=== PATIENT | female | born 1965 | race Caucasian/White ===

== ENCOUNTER → 2017-08-25 12:12 | Outpatient (CLI) | payer OTHER, MEDICAID, SELFPAY ==
[2017-08-25 12:49] LABS: Add Manual Diff / Slide Review NO; Basophils Percent Auto 1.4 % (0-2); Hematocrit 35.6 % (36-46); Hemoglobin 12.1 g/dL (12.0-16.0); Lymphocytes Percent Auto 33.2 % (25-40); Mean Corpuscular Hemoglobin 33.1 PG (26-34); Mean Corpuscular Volume 97.5 fL (80-100); Monocytes Percent Auto 7.2 % (3-14); Neutrophils Absolute Auto 2000 /uL (3000-5900); Neutrophils Percent Auto 55.2 % (50-75); Platelet Count 245 X10^3/uL (150-400); Red Blood Cell Count 3.65 X10^6/uL (4.0-5.2); Red Cell Distribution Width 12.7 % (11.6-14.8); White Blood Cell Count 3.6 X10^3/uL (4.5-11.0)
[2017-08-25 13:40] LABS: HEMOLYSIS < 15 (0-50); Iron 105 ug/dL (37-170)
[2017-08-25 13:51] LABS: Percent Iron Saturation 31 % (15-50); Total Iron Binding Capacity 340 ug/dL (265-497); Transferrin 270 mg/dL (206-381)
== END ==
PROVIDERS: Family Provider Nurse Practitioner Family; PCP Nurse Practitioner Family; Visit Provider Nurse Practitioner Gerontology
DX: D50.9 Iron deficiency anemia, unspecified (principal)
CPT/HCPCS: 36415; 83540; 83550; 85025

== ENCOUNTER → 2017-11-17 09:58 | Outpatient (CLI) | payer OTHER, MEDICAID, SELFPAY ==
[2017-11-17 10:11] LABS: Add Manual Diff / Slide Review NO; Basophils Percent Auto 2.4 % (0-2); Eosinophils Percent Auto 4.8 % (2-4); Hematocrit 35.6 % (36-46); Hemoglobin 12.3 g/dL (12.0-16.0); Lymphocytes Percent Auto 24.4 % (25-40); Mean Corpuscular HGB Conc 34.5 % (30-36); Mean Corpuscular Hemoglobin 33.1 PG (26-34); Monocytes Percent Auto 8.5 % (3-14); Neutrophils Absolute Auto 2600 /uL (3000-5900); Neutrophils Percent Auto 59.9 % (50-75); Platelet Count 273 X10^3/uL (150-400); Red Cell Distribution Width 13.1 % (11.6-14.8); White Blood Cell Count 4.3 X10^3/uL (4.5-11.0)
[2017-11-17 10:33] LABS: HEMOLYSIS < 15 (0-50); Iron 72 ug/dL (37-170)
[2017-11-17 10:43] LABS: Percent Iron Saturation 22 % (15-50); Total Iron Binding Capacity 328 ug/dL (265-497); Transferrin 267 mg/dL (206-381)
== END ==
PROVIDERS: Family Provider Nurse Practitioner Family; PCP Nurse Practitioner Family; Visit Provider Nurse Practitioner Gerontology
DX: D50.8 Other iron deficiency anemias (principal)
CPT/HCPCS: 36415; 83540; 83550; 85025

== ENCOUNTER 2017-11-24 11:30 | Oncology outpatient (ONC) | payer OTHER, MEDICAID, SELFPAY ==
--- NOTE | 2017-09-01 12:29 | ONC.APRN.PN ---
Assessment and Plan (1) Iron deficiency anemia due to dietary causes Current visit: Yes Status: Acute 09/01/17 12:36 The patient is a 51 year old Female who is being seen in the clinic 09/01/2017. 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 Etiology of malabsorption is related to damage to duodenal lining after ingesting a chemical in suicide attempt. Most recently she received iron sucrose infusions March 2017, with post infusion CBC and iron panel demonstrating excellent response. Most recent blood work August 26 demonstrates very stable blood work with a hemoglobin 12.0 hematocrit 35.6 serum iron 105 with saturation of 31. The patient reports she is trying to eat more, trying to gain weight also eating more red meat. She is taking an oral iron supplement. She still does complain of fatigue also feels her skin is pale and her hair is thin. We will add TSH, B12, folate to her blood work. Plan at this time is to return to clinic in 3 months for CBC CMP iron profile provider visit. Sooner for any questions or concerns. 09/01/17 13:00 - Time Spent with Patient 35 minutes PN -Subjective Interval history: The patient is a 51 year old Female who is being seen in the clinic 09/01/2017. 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 Etiology of malabsorption is related to damage to duodenal lining after ingesting a chemical in suicide attempt. Most recently she received iron sucrose infusions March 2017, post infusion cbc demonstrated hemoglobin 12.0 hematocrit 35.9 MCV 91.0, total iron 85, saturation 30. Pt received a total of 1g iron sucrose infusions over 4-5 weeks. Mohini presents today for interval clinical evaluation. She states she is feeling pretty good. Admits to feeling tired however goes on to say I think I am just lazy. She is still dealing with the recent of her mother and managing her estate which she finds daunting and exhausting. She finds she is putting off doing that quite frequently. She is not having any shortness of breath. No odd food cravings. No chest pain. No unexplained bleeding or bruising. She has been getting out most days and taking her dog on walks. She spends a lot of time with her father in law. She feels as though her appetite has improved, she is trying to eat more red meat. She is also taking daily oral iron. I asked Mohini what she is doing for summer fun and she could not answer my question. Past Medical History The patient's past medical history is significant for: 1) Iron deficiency anemia identified in September 10, 2015. Potentially from damage to the duodenal lining after a chemical suicide attempt Patient presented with a hemoglobin of 7.7 hematocrit of 25 MCV 68 and a percent saturation of 25. Patient was symptomatic with fatigue and ice cube craving. She underwent EGD and colonoscopy on 11/30/2017 without evidence of ulceration [place]'s esophagitis or gastritis. Multiple biopsies reporting mild chronic gastritis involving the antral mucosa otherwise no evidence of dysplasia. malignancy, or [place]'s esophagitis seen. She completed IV iron sucrose 1 g infusion in November 2015 again in April 2017 2) depression with a suicide attempt in 2013. Complications included caustic distraction of the pylorus requiring surgery. No further details available. 3) chronic anemia no further details available. Results - Imaging Additional studies: Procedures Injection or infusion of other therapeutic or prophylactic substance (09/16/13) Insertion of other (naso-)gastric tube (09/16/13) Other endoscopy of small intestine (07/27/13) Home Medications and Allergies Home Medications Medication Instructions Recorded Confirmed Type citalopram [Celexa] 20 mg PO QDAY #30 tab 10/30/15 History ferrous sulfate [Feosol] 325 mg PO TID #270 tab 03/18/17 Rx multivitamin 2 tab PO TIDWM 09/01/17 09/01/17 History Exam Narrative: non toxic appearing. Thin. Looks better than I have seen her look last few visits, seems more animated with more energy. - Constitutional positive no acute distress, positive thin - Routine HEENT Exam Head: Present: normocephalic, atraumatic Eye: Present: conjunctivae pink. Absent: conjunctival icterus, scleral injection ENT: Present: mucous membranes moist, oropharynx clear - Routine Neck Exam Present: supple. Absent: lymphadenopathy - Routine Respiratory Exam Present: Clear to auscultation bilaterally. Absent: rales, rhonchi, wheezes - Routine Cardiovascular Exam Present: RRR, S1, S2. Absent: murmur, gallop, rubs, JVD - Routine Abdominal Exam Present: soft, normoactive bowel sounds. Absent: tenderness, distended, organomegaly - Routine Extremities Exam Absent: edema, calf tenderness - Routine Skin Exam Present: intact, normal turgor. Absent: erythema, petechiae, rash - Routine Neurological Exam Present: alert, oriented X3 - Routine Psychiatric Exam Present: normal affect, cooperative, good insight, good judgment
[2017-09-01 12:42] VITALS: BP 99/59; PULSE 82; RESP 16; TEMP 36.9; O2SAT 97
[2017-09-01 13:48] LABS: Thyroid Stimulating Hormone 0.76 uIU/mL (0.47-4.68)
[2017-09-01 14:24] LABS: Folate > 20.0 ng/mL (2.76-20.0); Vitamin B12 284 pg/mL (239-931)
--- NOTE | 2017-11-21 09:56 | ONC.APRN.PN ---
PN -Subjective Interval history: The patient is a 51 year old Female who is being seen in the clinic 11/21/2017. 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 Etiology of malabsorption is related to damage to duodenal lining after ingesting a chemical in suicide attempt. Most recently she received iron sucrose infusions March 2017, post infusion cbc demonstrated hemoglobin 12.0 hematocrit 35.9 MCV 91.0, total iron 85, saturation 30. Pt received a total of 1g iron sucrose infusions over 4-5 weeks. Mohini presents today for interval clinical evaluation. She states she is feeling pretty good. Admits to feeling tired however goes on to say I think I am just lazy. She is still dealing with the recent of her mother and managing her estate which she finds daunting and exhausting. She finds she is putting off doing that quite frequently. She is not having any shortness of breath. No odd food cravings. No chest pain. No unexplained bleeding or bruising. She has been getting out most days and taking her dog on walks. She spends a lot of time with her father in law. She feels as though her appetite has improved, she is trying to eat more red meat. She is also taking daily oral iron. I asked Mohini what she is doing for summer fun and she could not answer my question. Past Medical History The patient's past medical history is significant for: 1) Iron deficiency anemia identified in September 10, 2015. Potentially from damage to the duodenal lining after a chemical suicide attempt Patient presented with a hemoglobin of 7.7 hematocrit of 25 MCV 68 and a percent saturation of 25. Patient was symptomatic with fatigue and ice cube craving. She underwent EGD and colonoscopy on 11/30/2017 without evidence of ulceration [place]'s esophagitis or gastritis. Multiple biopsies reporting mild chronic gastritis involving the antral mucosa otherwise no evidence of dysplasia. malignancy, or [place]'s esophagitis seen. She completed IV iron sucrose 1 g infusion in November 2015 again in April 2017 2) depression with a suicide attempt in 2013. Complications included caustic distraction of the pylorus requiring surgery. No further details available. 3) chronic anemia no further details available. - Patient Self-Reported Symptoms SR Constitution: Fatigue/Malaise, Night Sweats SR Cardiovascular issues: Dizzy/lightheaded SR Neuro issues: Lightheaded/dizzy SR Hematologic issues: Slow healing Home Medications and Allergies Home Medications Medication Instructions Recorded Confirmed Type citalopram [Celexa] 20 mg PO QDAY #30 tab 10/30/15 History ferrous sulfate [Feosol] 325 mg PO TID #270 tab 03/18/17 Rx multivitamin 2 tab PO TIDWM 09/01/17 09/01/17 History Exam Vital signs: Last Vital Signs Temp 98.5 F 09/01/17 12:42 Pulse 82 09/01/17 12:42 Resp 16 09/01/17 12:42 BP 99/59 L 09/01/17 12:42 Pulse Ox 97 09/01/17 12:42 Results - Labs Laboratory Last Values Vitamin B12 284 pg/mL (239-931) 09/01/17 12:55 Folate > 20.0 ng/mL (2.76-20.0) H 09/01/17 12:55 TSH 0.76 uIU/mL (0.47-4.68) 09/01/17 12:55 - Imaging Additional studies: Procedures Injection or infusion of other therapeutic or prophylactic substance (09/16/13) Insertion of other (naso-)gastric tube (09/16/13) Other endoscopy of small intestine (07/27/13) Assessment and Plan (1) Iron deficiency anemia due to dietary causes Status: Acute 52-year-old female with a diagnosis of 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 No indication for iron sucrose infusions since March of 2017. Blood work today demonstrates hemoglobin 12.3 hematocrit 35.6 MCV 96.0. Serum iron is 72, saturation 22.
[2017-11-24 11:40] VITALS: BP 118/75; PULSE 71; RESP 18; TEMP 37.1; O2SAT 99
--- NOTE | 2017-11-24 12:02 | ONC.APRN.PN ---
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 Etiology of malabsorption is related to damage to duodenal lining after ingesting a chemical in suicide attempt. Historically she has required iron infusions about every year or so. Most recent iron infusion was March of 2017 with post infusion CBC and iron panel demonstrating excellent response. She is taking oral iron TID every other day and tolerating well. . The patient has no new complaints on exam today. She is sherry menopausal she is reporting hot flashes. Otherwise feeling quite well. Activity tolerance is quite good. No shortness of breath, chest pain. Appetite is better than normal. Weight is stable. No skin changes. No new lumps or bumps. No new pain. Bowel movements are normal. Mood is stable, she is grieving the loss of her mother who approximately 1 year ago. The pt feels she is coping well, some days are better than others. - Patient Self-Reported Symptoms SR Constitution: Night Sweats SR ears, nose, mouth, throat issues: Ears ringing SR Cardiovascular issues: Dizzy/lightheaded SR Neuro issues: Lightheaded/dizzy SR Hematologic issues: Slow healing Home Medications and Allergies Home Medications Medication Instructions Recorded Confirmed Type citalopram [Celexa] 20 mg PO QDAY #30 tab 10/30/15 History ferrous sulfate [Feosol] 325 mg PO TID #270 tab 03/18/17 Rx multivitamin 2 tab PO TIDWM 09/01/17 09/01/17 History Exam Vital signs: Last Vital Signs Temp 98.7 F 11/24/17 11:40 Pulse 71 11/24/17 11:40 Resp 18 11/24/17 11:40 BP 118/75 11/24/17 11:40 Pulse Ox 99 11/24/17 11:40 - Constitutional positive no acute distress, positive thin - Routine HEENT Exam Eye: Present: conjunctivae pink. Absent: conjunctival icterus, scleral injection ENT: Present: mucous membranes moist, oropharynx clear - Routine Neck Exam Present: supple. Absent: lymphadenopathy - Routine Respiratory Exam Present: Clear to auscultation bilaterally. Absent: rales, rhonchi, wheezes - Routine Cardiovascular Exam Present: RRR, S1, S2. Absent: murmur, gallop, rubs, JVD - Routine Abdominal Exam Present: soft, normoactive bowel sounds. Absent: tenderness, distended, organomegaly, mass - Routine Extremities Exam Absent: edema, calf tenderness - Routine Skin Exam Present: intact, normal turgor. Absent: rash - Routine Neurological Exam Present: alert, oriented X3 - Routine Psychiatric Exam Present: normal affect Results - Labs Laboratory Last Values Vitamin B12 284 pg/mL (239-931) 09/01/17 12:55 Folate > 20.0 ng/mL (2.76-20.0) H 09/01/17 12:55 TSH 0.76 uIU/mL (0.47-4.68) 09/01/17 12:55 - Imaging Additional studies: Procedures Injection or infusion of other therapeutic or prophylactic substance (09/16/13) Insertion of other (naso-)gastric tube (09/16/13) Other endoscopy of small intestine (07/27/13) Assessment and Plan (1) Iron deficiency anemia due to dietary causes Current visit: No Status: Acute 52-year-old female with a diagnosis of iron deficiency anemia. Most recent iron infusion was March of 2017. CBC today demonstrates hemoglobin 12.3 hematocrit 35.6 MCV 96.0. CMP unremarkable. Iron panel demonstrates serum iron of 72 saturation 22%. No indication for infusion at this time. Continue oral iron every other day. Return to clinic in late January, early February for provider visit, CBC, iron panel. - Time Spent with Patient 25 mins
--- NOTE | 2018-01-18 12:17 | ONC.SCHED ---
TRIED CALLING THIS PATIENT TO RE SCHEDULE APT. BUT GOT VM. LEFT MESSAGE. [facility] IS NOT HERE THE January PER RYAN.
== END 2017-11-25 12:00 ==
PROVIDERS: Family Provider Nurse Practitioner Family; PCP Nurse Practitioner Family; Visit Provider Nurse Practitioner Gerontology
DX: D50.8 Other iron deficiency anemias (principal); K90.9 Intestinal malabsorption, unspecified
CPT/HCPCS: 36415; 82607; 82746; 84443; 99214

== ENCOUNTER → 2018-05-02 16:05 | Outpatient (CLI) | payer OTHER, MEDICAID, SELFPAY ==
[2018-05-02 17:10] LABS: Add Manual Diff / Slide Review NO; Basophils Absolute Auto 100 /uL (0-100); Basophils Percent Auto 1.2 % (0-2); Eosinophils Absolute Auto 300 /uL (0-450); Hematocrit 39.3 % (36-46); Hemoglobin 13.3 g/dL (12.0-16.0); Lymphocytes Absolute Auto 1600 /uL (1100-4500); Lymphocytes Percent Auto 23.3 % (25-40); Mean Corpuscular HGB Conc 33.7 % (30-36); Mean Corpuscular Hemoglobin 32.1 PG (26-34); Mean Corpuscular Volume 95.1 fL (80-100); Monocytes Absolute Auto 500 /uL (0-900); Monocytes Percent Auto 7.4 % (3-14); Neutrophils Absolute Auto 4400 /uL (1500-7000); Neutrophils Percent Auto 64.1 % (50-75); Platelet Count 300 X10^3/uL (150-400); Red Blood Cell Count 4.14 X10^6/uL (4.0-5.2); Red Cell Distribution Width 13.1 % (11.6-14.8); White Blood Cell Count 6.9 X10^3/uL (4.5-11.0)
[2018-05-02 17:26] LABS: HEMOLYSIS < 15 (0-50); Iron 158 ug/dL (37-170)
[2018-05-02 17:37] LABS: Percent Iron Saturation 40 % (15-50); Total Iron Binding Capacity 396 ug/dL (265-497); Transferrin 334 mg/dL (206-381)
== END ==
PROVIDERS: Family Provider Nurse Practitioner Family; PCP Nurse Practitioner Family; Visit Provider Nurse Practitioner Gerontology
DX: D50.8 Other iron deficiency anemias (principal)
CPT/HCPCS: 36415; 83540; 83550; 85025

== ENCOUNTER → 2019-02-06 12:40 | Oncology outpatient (ONC) | payer OTHER, MEDICAID, SELFPAY ==
[2018-02-22 14:04] LABS: Add Manual Diff / Slide Review NO; Basophils Percent Auto 1.7 % (0-2); Eosinophils Percent Auto 3.4 % (2-4); Hematocrit 38.4 % (36-46); Hemoglobin 12.8 g/dL (12.0-16.0); Mean Corpuscular HGB Conc 33.4 % (30-36); Mean Corpuscular Hemoglobin 32.1 PG (26-34); Mean Corpuscular Volume 96.1 fL (80-100); Monocytes Percent Auto 7.8 % (3-14); Neutrophils Absolute Auto 3800 /uL (1500-7000); Neutrophils Percent Auto 65.1 % (50-75); Platelet Count 264 X10^3/uL (150-400); Red Cell Distribution Width 13.6 % (11.6-14.8); White Blood Cell Count 5.8 X10^3/uL (4.5-11.0)
[2018-02-22 14:55] LABS: HEMOLYSIS < 15 (0-50); Iron 137 ug/dL (37-170)
[2018-02-22 15:06] LABS: Percent Iron Saturation 37 % (15-50); Total Iron Binding Capacity 366 ug/dL (265-497); Transferrin 304 mg/dL (206-381)
[2018-02-23 15:29] VITALS: BP 113/60; PULSE 76; RESP 18; TEMP 36.5; O2SAT 99
--- NOTE | 2018-02-23 16:13 | ONC.APRN.PN ---
PN -Subjective Interval history: The patient is a 52-year-old female who is being seen in the clinic February 23, 2018. 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 Etiology of malabsorption is related to damage to duodenal lining after ingesting a chemical in suicide attempt in 2013. Historically she has required iron infusions once or twice yearly. Periodically she will also require transfusion of packed red blood cells. Most recent iron infusion was March 2017. She takes ferrous sulfate TID every other day along with a daily chewable vitamin. Today on exam the pt reports I am feeling better than I have in a long time. Still admits to some fatigue however better than the last few years. She takes a nap almost daily. No shortness of breath, no chest pain. No unexplained bleeding or bruising. Appetite is better also she continues to gain weight which is what she is trying to do, she had a very difficult time gaining weight for years. She was on tube feeds for a period of time after ingestion of chemical. Mood is really good, but I am worried about the winter months. She remains on celexa 20mg QD. No nausea. No constipation or diarrhea, BM's are normal. No blood in stool. Most recent colonoscopy was 2016 - Patient Self-Reported Symptoms SR Constitution: Night Sweats SR Skin issues: Nail changes Home Medications and Allergies Home Medications Medication Instructions Recorded Confirmed Type citalopram [Celexa] 20 mg PO QDAY #30 tab 10/30/15 History ferrous sulfate [Feosol] 325 mg PO TID #270 tab 03/18/17 Rx multivitamin 2 tab PO TIDWM 09/01/17 09/01/17 History Exam - Constitutional positive no acute distress, positive thin - Routine HEENT Exam Eye: Present: conjunctivae pink. Absent: conjunctival icterus, scleral injection ENT: Present: mucous membranes moist, oropharynx clear - Routine Neck Exam Present: supple. Absent: lymphadenopathy - Routine Respiratory Exam Present: Clear to auscultation bilaterally. Absent: rales, rhonchi, wheezes - Routine Cardiovascular Exam Present: RRR, S1, S2. Absent: murmur, gallop, rubs, JVD - Routine Abdominal Exam Present: soft, normoactive bowel sounds. Absent: tenderness, distended, organomegaly - Routine Extremities Exam Absent: edema, calf tenderness - Routine Skin Exam Absent: intact, petechiae, normal turgor, rash - Routine Neurological Exam Present: alert, oriented X3 - Routine Psychiatric Exam Present: normal affect Results - Labs Laboratory Last Values WBC 5.8 X10^3/uL (4.5-11.0) 02/22/18 13:58 RBC 4.00 X10^6/uL (4.0-5.2) 02/22/18 13:58 Hgb 12.8 g/dL (12.0-16.0) 02/22/18 13:58 Hct 38.4 % (36-46) 02/22/18 13:58 MCV 96.1 fL (80-100) 02/22/18 13:58 MCH 32.1 PG (26-34) 02/22/18 13:58 MCHC 33.4 % (30-36) 02/22/18 13:58 RDW 13.6 % (11.6-14.8) 02/22/18 13:58 Plt Count 264 X10^3/uL (150-400) 02/22/18 13:58 Neut % (Auto) 65.1 % (50-75) 02/22/18 13:58 Lymph % (Auto) 22.0 % (25-40) L 02/22/18 13:58 [place] % (Auto) 7.8 % (3-14) 02/22/18 13:58 Eos % (Auto) 3.4 % (2-4) 02/22/18 13:58 Baso % (Auto) 1.7 % (0-2) 02/22/18 13:58 Neut # (Auto) 3800 /uL (4198-1505) 02/22/18 13:58 Iron 137 ug/dL (37-170) 02/22/18 13:58 TIBC 366 ug/dL (265-497) 02/22/18 13:58 % Saturation 37 % (15-50) 02/22/18 13:58 Transferrin 304 mg/dL (206-381) 02/22/18 13:58 - Imaging Additional studies: Procedures Injection or infusion of other therapeutic or prophylactic substance (09/16/13) Insertion of other (naso-)gastric tube (09/16/13) Other endoscopy of small intestine (07/27/13) Assessment and Plan (1) Iron deficiency anemia due to dietary causes Current visit: No Status: Acute The patient is a 52-year-old female who is seen in this clinic for chronic iron deficiency anemia due to malabsorption. Patient is feeling well on exam today. Her CBC is largely unremarkable with hemoglobin 12.8 hematocrit 38.4 with MCV 96.1. Patient's iron panel which was drawn February 22, 2018 is surprisingly within normal limits with a total iron of 137 saturation 37%. This is by far leaps and bounds better than the patient's iron profile has ever looked. Patient does report she is feeling better however still requires a daily nap. I have to question if these test results are in fact accurate. November 24, 2017 serum iron was 72 with saturation of 22%. We will repeat iron panel based on these results we will plan accordingly. Pt verbalizes understanding. [employer] F[employer] MANAGERMaulik Ramirez has graciously agreed to see the pt for 1-2 counseling sessions just to be sure she is on the right track. If she needs more intense therapy during the winter months [facility] can help set that up. Pt is very appreciative. - Time Spent with Patient 25 mins
[2018-02-23 17:01] LABS: HEMOLYSIS < 15 (0-50); Iron 119 ug/dL (37-170)
[2018-02-23 17:12] LABS: Percent Iron Saturation 34 % (15-50); Total Iron Binding Capacity 348 ug/dL (265-497); Transferrin 301 mg/dL (206-381)
[2018-05-09 16:00] VITALS: BP 114/67; PULSE 87; RESP 18; TEMP 37; O2SAT 100
--- NOTE | 2018-05-09 16:38 | P.PNONC_ITS ---
PN -Subjective Interval history: The patient is a 52-year-old female who is being seen in the clinic 05/09/2018. 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 Etiology of malabsorption is related to damage to duodenal lining after ingesting a chemical in suicide attempt in 2013. Historically she has required iron infusions once or twice yearly. Periodically she will also require transfusion of packed red blood cells. Most recent iron infusion was March 2017. She takes ferrous sulfate TID every other day along with a daily chewable vitamin. Today on exam the pt reports I am feeling better than I have in a long time. Still admits to some fatigue however better than the last few years. She takes a nap almost daily. No shortness of breath, no chest pain. No unexplained bleeding or bruising. Appetite is better also she continues to gain weight which is what she is trying to do, she had a very difficult time gaining weight for years. She was on tube feeds for a period of time after ingestion of chemical. Mood is really good, but I am worried about the the next few months until summer. She remains on celexa 20mg QD. No nausea. No constipation or diarrhea, BM's are normal. No blood in stool. Most recent colonoscopy was 2016 - Patient Self-Reported Symptoms SR Constitution: Night Sweats SR ears, nose, mouth, throat issues: Ears ringing SR Skin issues: Nail changes Home Medications and Allergies Home Medications Medication Instructions Recorded Confirmed Type citalopram [Celexa] 20 mg PO QDAY #30 tab 10/30/15 History ferrous sulfate [Feosol] 325 mg PO TID #270 tab 03/18/17 Rx multivitamin 2 tab PO TIDWM 09/01/17 09/01/17 History Exam Vital signs: Vital Signs Temp Pulse Resp BP Pulse Ox 05/09/18 16:00 98.6 F 87 18 114/67 100 Intake and Output 05/09/18 05/09/18 05/09/18 07:59 15:59 23:59 Other: Weight 56.1 kg Patient Weight 05/09/18 23:59 Weight 56.1 kg - Constitutional positive no acute distress, positive thin - Routine HEENT Exam Eye: Present: conjunctivae pink. Absent: conjunctival icterus, scleral injection ENT: Present: mucous membranes moist, oropharynx clear - Routine Neck Exam Present: supple. Absent: lymphadenopathy - Routine Respiratory Exam Present: Clear to auscultation bilaterally. Absent: rales, rhonchi, wheezes - Routine Cardiovascular Exam Present: RRR, S1, S2. Absent: murmur, gallop, rubs, JVD - Routine Abdominal Exam Present: soft, normoactive bowel sounds. Absent: tenderness, distended, organo megaly - Routine Extremities Exam Absent: edema - Routine Skin Exam Present: intact, normal turgor - Routine Neurological Exam Present: alert, oriented X3 - Routine Psychiatric Exam Present: normal affect, good insight, good judgment. Absent: depressed, anxious Results - Labs Laboratory Last Values WBC 5.8 X10^3/uL (4.5-11.0) 02/22/18 13:58 RBC 4.00 X10^6/uL (4.0-5.2) 02/22/18 13:58 Hgb 12.8 g/dL (12.0-16.0) 02/22/18 13:58 Hct 38.4 % (36-46) 02/22/18 13:58 MCV 96.1 fL (80-100) 02/22/18 13:58 MCH 32.1 PG (26-34) 02/22/18 13:58 MCHC 33.4 % (30-36) 02/22/18 13:58 RDW 13.6 % (11.6-14.8) 02/22/18 13:58 Plt Count 264 X10^3/uL (150-400) 02/22/18 13:58 Neut % (Auto) 65.1 % (50-75) 02/22/18 13:58 Lymph % (Auto) 22.0 % (25-40) L 02/22/18 13:58 [place] % (Auto) 7.8 % (3-14) 02/22/18 13:58 Eos % (Auto) 3.4 % (2-4) 02/22/18 13:58 Baso % (Auto) 1.7 % (0-2) 02/22/18 13:58 Neut # (Auto) 3800 /uL (1846-3302) 02/22/18 13:58 Iron 119 ug/dL (37-170) 02/23/18 15:58 TIBC 348 ug/dL (265-497) 02/23/18 15:58 % Saturation 34 % (15-50) 02/23/18 15:58 Transferrin 301 mg/dL (206-381) 02/23/18 15:58 - Imaging Additional studies: Procedures Injection or infusion of other therapeutic or prophylactic substance (09/16/13) Insertion of other (naso-)gastric tube (09/16/13) Other endoscopy of small intestine (07/27/13) Assessment and Plan (1) Iron deficiency anemia due to dietary causes Current visit: No Status: Acute The patient is a 52-year-old female who is seen in this clinic for chronic iron deficiency anemia due to malabsorption. Patient is feeling well on exam today and reports she has been feeling better the last few months than she has in years. CBC November 02, 2018 demonstrates hemoglobin 13.3 hematocrit 39.3 with MCV 95.1. Total iron is 158 saturation is 40. No indication at this time for iron infusions. Cont QOD oral iron also daily vitamin. RTC in 3-4 months to establish care with one of our new oncologists. Also check cbc cmp iron panel ferritin
[2018-10-17 11:34] LABS: Hemoglobin 11.1 g/dL (12.0-16.0); Mean Corpuscular HGB Conc 32.8 % (30-36); Mean Corpuscular Hemoglobin 28.9 PG (26-34); Mean Corpuscular Volume 88.3 fL (80-100); Platelet Count 257 X10^3/uL (150-400); Red Blood Cell Count 3.85 X10^6/uL (4.0-5.2); Red Cell Distribution Width 14.9 % (11.6-14.8); White Blood Cell Count 3.9 X10^3/uL (4.5-11.0)
[2018-10-17 12:04] LABS: Alanine Aminotransferase 12 IU/L (9-52); Albumin Globulin Ratio 1.7 (1.0-2.8); Alkaline Phosphatase 45 U/L (38-126); Aspartate Aminotransferase 23 IU/L (14-36); BUN Creatinine Ratio 13.8 (6-22); Blood Urea Nitrogen 11 mg/dL (7-17); Calcium 9.3 mg/dL (8.4-10.2); Carbon Dioxide 26 mmol/L (22-32); Chloride 102 mmol/L (98-107); Estimated Glomerular Filt Rate > 60.0 mL/min (>60); Globulin 2.4 g/dL (1.7-4.1); Glucose 82 mg/dL (70-100); HEMOLYSIS < 15 (0-50); Potassium 4.4 mmol/L (3.4-5.1); Sodium 135 mmol/L (137-145); Total Protein 6.4 g/dL (6.3-8.2)
[2018-10-17 12:05] LABS: HEMOLYSIS < 15 (0-50); Iron 93 ug/dL (37-170)
[2018-10-17 12:15] LABS: Percent Iron Saturation 22 % (15-50); Total Iron Binding Capacity 425 ug/dL (265-497); Transferrin 352 mg/dL (206-381)
[2018-10-17 12:27] LABS: Neutrophils Absolute Manual 2145 /uL (3000-5900); Total Cells Counted 100
[2018-10-17 12:28] LABS: RBC Morphology Normal Morphology
[2018-10-17 12:40] LABS: Ferritin 6.7 ng/mL (11.1-264)
[2018-10-18 16:04] VITALS: BP 111/67; PULSE 76; RESP 18; TEMP 36.3; O2SAT 100
--- NOTE | 2018-10-18 16:42 | ONC.PN ---
PN -Subjective Interval history: This: Iron deficiency anemia due to poor absorption Previous treatment: Oral and IV iron the most recent IV treatment was in March 2017. Interval history: The patient is a 52-year-old female who returns today for follow-up. She has a history of iron deficiency due to poor absorption. She has required intermittent IV treatment most recently in March 2017. Since her last visit here, she has been feeling generally well. She has not noticed any unusual bleeding or bruising. She had been taking oral iron, 3 tablets every other day but ran out about 2 months ago and has not been taking it since then. She notes that more recently, she has begun to feel little bit more fatigued and sleeping more. She has noted a wishing sound in her ears particularly when she is bending over. She has a little bit more generalized weakness but otherwise feels well. Appetite has been good. No fevers chills or sweats. No unusual bleeding or bruising. She denies any other changes in her health. Her only other medication include Celexa. - Patient Self-Reported Symptoms SR Constitution: Fatigue/Malaise SR ears, nose, mouth, throat issues: Ears ringing SR Skin issues: Nail changes Home Medications and Allergies Home Medications Medication Instructions Recorded Confirmed Type citalopram [Celexa] 20 mg PO QDAY #30 tab 10/30/15 10/18/18 History multivitamin 2 tab PO TIDWM 09/01/17 10/18/18 History ferrous sulfate [Feosol] 325 mg PO TID #270 tab 10/18/18 Rx Exam Vital signs: Vital Signs Temp Pulse Resp BP Pulse Ox 10/18/18 16:04 97.4 F L 76 18 111/67 100 Intake and Output 10/18/18 10/18/18 10/18/18 07:59 15:59 23:59 Other: Weight 54.6 kg Patient Weight 10/18/18 23:59 Weight 54.6 kg - Constitutional positive no acute distress, positive average body habitus - Routine HEENT Exam Head: Present: normocephalic, atraumatic Eye: Present: EOMI, PERRL. Absent: conjunctival icterus, scleral injection ENT: Present: mucous membranes moist, oropharynx clear - Routine Neck Exam Present: supple. Absent: lymphadenopathy, thyromegaly - Routine Respiratory Exam Present: Clear to auscultation bilaterally. Absent: rales, wheezes - Routine Cardiovascular Exam Present: RRR, S1, S2. Absent: murmur - Routine Abdominal Exam Present: soft, normoactive bowel sounds. Absent: tenderness, organomegaly, mass - Routine Extremities Exam Absent: cyanosis, clubbing, edema - Routine Skin Exam Present: intact. Absent: petechiae, rash - Routine Neurological Exam Present: alert, oriented X3 - Routine Psychiatric Exam Present: normal affect, normal thought process Results - Labs Laboratory Last Values WBC 3.9 X10^3/uL (4.5-11.0) L 10/17/18 11:24 RBC 3.85 X10^6/uL (4.0-5.2) L 10/17/18 11:24 Hgb 11.1 g/dL (12.0-16.0) L 10/17/18 11:24 Hct 34.0 % (36-46) L 10/17/18 11:24 MCV 88.3 fL (80-100) 10/17/18 11:24 MCH 28.9 PG (26-34) 10/17/18 11:24 MCHC 32.8 % (30-36) 10/17/18 11:24 RDW 14.9 % (11.6-14.8) H 10/17/18 11:24 Plt Count 257 X10^3/uL (150-400) 10/17/18 11:24 Neut % (Auto) 65.1 % (50-75) 02/22/18 13:58 Lymph % (Auto) 22.0 % (25-40) L 02/22/18 13:58 Fisher % (Auto) 7.8 % (3-14) 02/22/18 13:58 Eos % (Auto) 3.4 % (2-4) 02/22/18 13:58 Baso % (Auto) 1.7 % (0-2) 02/22/18 13:58 Neut # (Auto) 3800 /uL ([id number]) 02/22/18 13:58 Total Counted 100 10/17/18 11:24 Seg Neutrophils % 55.0 % (38-70) 10/17/18 11:24 Lymphocytes % (Manual) 29.0 % (25-45) 10/17/18 11:24 Atypical Lymphs % 1.0 % (-0) H 10/17/18 11:24 Monocytes % (Manual) 9.0 % (2-11) 10/17/18 11:24 Eosinophils % (Manual) 4.0 % (2-4) 10/17/18 11:24 Basophils % (Manual) 2.0 % (0-1) H 10/17/18 11:24 Neutrophils # (Manual) 2145 /uL (9770-4601) L 10/17/18 11:24 RBC Morphology Normal morphology 10/17/18 11:24 Sodium 135 mmol/L (137-145) L 10/17/18 11:24 Potassium 4.4 mmol/L (3.4-5.1) 10/17/18 11:24 Chloride 102 mmol/L (98-107) 10/17/18 11:24 Carbon Dioxide 26 mmol/L (22-32) 10/17/18 11:24 BUN 11 mg/dL (7-17) 10/17/18 11:24 Creatinine 0.80 mg/dL (0.52-1.04) 10/17/18 11:24 Estimated GFR > 60.0 mL/min (>60) 10/17/18 11:24 BUN/Creatinine Ratio 13.8 (6-22) 10/17/18 11:24 Glucose 82 mg/dL (70-100) 10/17/18 11:24 Calcium 9.3 mg/dL (8.4-10.2) 10/17/18 11:24 Iron 93 ug/dL (37-170) 10/17/18 11:24 TIBC 425 ug/dL (265-497) 10/17/18 11:24 % Saturation 22 % (15-50) 10/17/18 11:24 Transferrin 352 mg/dL (206-381) 10/17/18 11:24 Ferritin 6.7 ng/mL (11.1-264) L 10/17/18 11:24 Total Bilirubin 1.0 mg/dL (0.2-1.3) 10/17/18 11:24 AST 23 IU/L (14-36) 10/17/18 11:24 ALT 12 IU/L (9-52) 10/17/18 11:24 Alkaline Phosphatase 45 U/L (38-126) 10/17/18 11:24 Total Protein 6.4 g/dL (6.3-8.2) 10/17/18 11:24 Albumin 4.0 g/dL (3.5-5.0) 10/17/18 11:24 Globulin 2.4 g/dL (1.7-4.1) 10/17/18 11:24 Albumin/Globulin Ratio 1.7 (1.0-2.8) 10/17/18 11:24 - Imaging Additional studies: Procedures Injection or infusion of other therapeutic or prophylactic substance (09/16/13) Insertion of other (naso-)gastric tube (09/16/13) Other endoscopy of small intestine (07/27/13) Assessment and Plan (1) Iron deficiency anemia due to dietary causes Current visit: No Status: Acute The patient is a 52-year-old female who is seen in this clinic for chronic iron deficiency anemia due to malabsorption. Her hemoglobin is down and her ferritin is low. Will get her scheduled for an additional course of IV iron. She will return to clinic here in about 3 months or so for follow-up. I did refill her oral iron as well.
[2018-10-31 10:36] VITALS: BP 114/61; PULSE 61; RESP 16; TEMP 36.5; O2SAT 99
[2018-10-31] MEDS: IRON SUCROSE 200 MG in SODIUM CHLORIDE 0.9% 100 ML 220 ML IV (10:41)
[2018-11-07] MEDS: IRON SUCROSE 200 MG in SODIUM CHLORIDE 0.9% 100 ML 220 ML IV (11:24)
[2018-11-07 12:12] VITALS: BP 144/68; PULSE 62; RESP 16; TEMP 36.8
[2018-11-14] MEDS: IRON SUCROSE 200 MG in SODIUM CHLORIDE 0.9% 100 ML 220 ML IV (11:03)
[2018-11-21 11:23] VITALS: BP 97/47; PULSE 68; RESP 16; TEMP 36.6; O2SAT 99
[2018-11-21] MEDS: IRON SUCROSE 200 MG in SODIUM CHLORIDE 0.9% 100 ML 220 ML IV (11:44)
[2018-11-28 11:01] VITALS: BP 102/62; PULSE 63; RESP 16; TEMP 36.7; O2SAT 100
[2018-11-28] MEDS: IRON SUCROSE 200 MG in SODIUM CHLORIDE 0.9% 100 ML 220 ML IV (11:11)
[2019-01-29 11:37] LABS: Add Manual Diff / Slide Review NO; Basophils Absolute Auto 0 /uL (0-100); Eosinophils Absolute Auto 200 /uL (0-450); Hematocrit 36.7 % (36-46); Hemoglobin 12.6 g/dL (12.0-16.0); Lymphocytes Absolute Auto 1100 /uL (1100-4500); Lymphocytes Percent Auto 29.3 % (25-40); Mean Corpuscular HGB Conc 34.3 % (30-36); Mean Corpuscular Hemoglobin 32.9 PG (26-34); Mean Corpuscular Volume 95.9 fL (80-100); Monocytes Absolute Auto 400 /uL (0-900); Monocytes Percent Auto 9.2 % (3-14); Neutrophils Absolute Auto 2200 /uL (1500-7000); Neutrophils Percent Auto 56.5 % (50-75); Platelet Count 217 X10^3/uL (150-400); Red Blood Cell Count 3.83 X10^6/uL (4.0-5.2); Red Cell Distribution Width 14.3 % (11.6-14.8); White Blood Cell Count 3.9 X10^3/uL (4.5-11.0)
[2019-02-06 12:53] VITALS: BP 104/61; PULSE 61; RESP 18; TEMP 36.2; O2SAT 100
--- NOTE | 2019-02-06 13:03 | ONC.PN ---
PN -Subjective Interval history: This: Iron deficiency anemia due to poor absorption Previous treatment: Oral and IV iron with IV treatment was in March 2017 and November 2018. Interval history: The patient is a 52-year-old female who returns today for follow-up. She has a history of iron deficiency due to poor absorption. She has required intermittent IV treatment most recently in November 2018. She tolerated the infusions without any difficulty. She feels like her strength and energy level have improved. She does have some fatigue that she attributes to menopausal symptoms and not sleeping well. She denies any unusual bleeding or bruising. No fevers or chills. No shortness of breath or cough. Her appetite has been stable. She denies any other changes in her health. Her only other medication include Celexa. - Patient Self-Reported Symptoms SR Constitution: Fatigue/Malaise SR ears, nose, mouth, throat issues: Ears ringing SR Skin issues: Dry skin SR Neuro issues: Headache SR Endocrine issues: Hot flashes Home Medications and Allergies Home Medications Medication Instructions Recorded Confirmed Type citalopram [Celexa] 20 mg PO QDAY #30 tab 10/30/15 02/06/19 History multivitamin 2 tab PO TIDWM 09/01/17 02/06/19 History ferrous sulfate [Feosol] 325 mg PO TID #270 tab 10/18/18 02/06/19 Rx Exam Vital signs: Vital Signs Temp Pulse Resp BP Pulse Ox 02/06/19 12:53 97.2 F L 61 18 104/61 100 Intake and Output 02/05/19 02/06/19 02/06/19 23:59 07:59 15:59 Other: Weight 55 kg Patient Weight 02/06/19 23:59 Weight 55 kg - Constitutional positive no acute distress, positive average body habitus - Routine HEENT Exam Head: Present: normocephalic, atraumatic Eye: Present: EOMI, PERRL. Absent: conjunctival icterus ENT: Present: mucous membranes moist, oropharynx clear - Routine Neck Exam Present: supple. Absent: lymphadenopathy, thyromegaly - Routine Respiratory Exam Present: Clear to auscultation bilaterally. Absent: rales, wheezes - Routine Cardiovascular Exam Present: RRR, S1, S2. Absent: murmur - Routine Abdominal Exam Present: soft, normoactive bowel sounds. Absent: tenderness, organomegaly, mass - Routine Extremities Exam Absent: cyanosis, clubbing, edema - Routine Back/Spine Exam Back/Spine: Absent: vertebral tenderness - Routine Skin Exam Present: intact. Absent: petechiae, rash - Routine Neurological Exam Present: alert, oriented X3 - Routine Psychiatric Exam Present: normal affect, normal thought process Results - Labs Laboratory Last Values WBC 3.9 X10^3/uL (4.5-11.0) L 01/29/19 11:23 RBC 3.83 X10^6/uL (4.0-5.2) L 01/29/19 11:23 Hgb 12.6 g/dL (12.0-16.0) 01/29/19 11:23 Hct 36.7 % (36-46) 01/29/19 11:23 MCV 95.9 fL (80-100) 01/29/19 11:23 MCH 32.9 PG (26-34) 01/29/19 11:23 MCHC 34.3 % (30-36) 01/29/19 11:23 RDW 14.3 % (11.6-14.8) 01/29/19 11:23 Plt Count 217 X10^3/uL (150-400) 01/29/19 11:23 Neut % (Auto) 56.5 % (50-75) 01/29/19 11:23 Lymph % (Auto) 29.3 % (25-40) 01/29/19 11:23 Latimer % (Auto) 9.2 % (3-14) 01/29/19 11:23 Eos % (Auto) 4.0 % (2-4) 01/29/19 11:23 Baso % (Auto) 1.0 % (0-2) 01/29/19 11:23 Neut # (Auto) 2200 /uL (8315-9411) 01/29/19 11:23 Lymph # (Auto) 1100 /uL (1301-6586) 01/29/19 11:23 Latimer # (Auto) 400 /uL (0-900) 01/29/19 11:23 Eos # (Auto) 200 /uL (0-450) 01/29/19 11:23 Baso # (Auto) 0 /uL (0-100) 01/29/19 11:23 Total Counted 100 10/17/18 11:24 Seg Neutrophils % 55.0 % (38-70) 10/17/18 11:24 Lymphocytes % (Manual) 29.0 % (25-45) 10/17/18 11:24 Atypical Lymphs % 1.0 % (-0) H 10/17/18 11:24 Monocytes % (Manual) 9.0 % (2-11) 10/17/18 11:24 Eosinophils % (Manual) 4.0 % (2-4) 10/17/18 11:24 Basophils % (Manual) 2.0 % (0-1) H 10/17/18 11:24 Neutrophils # (Manual) 2145 /uL (2113-2735) L 10/17/18 11:24 RBC Morphology Normal morphology 10/17/18 11:24 Sodium 135 mmol/L (137-145) L 10/17/18 11:24 Potassium 4.4 mmol/L (3.4-5.1) 10/17/18 11:24 Chloride 102 mmol/L (98-107) 10/17/18 11:24 Carbon Dioxide 26 mmol/L (22-32) 10/17/18 11:24 BUN 11 mg/dL (7-17) 10/17/18 11:24 Creatinine 0.80 mg/dL (0.52-1.04) 10/17/18 11:24 Estimated GFR > 60.0 mL/min (>60) 10/17/18 11:24 BUN/Creatinine Ratio 13.8 (6-22) 10/17/18 11:24 Glucose 82 mg/dL (70-100) 10/17/18 11:24 Calcium 9.3 mg/dL (8.4-10.2) 10/17/18 11:24 Iron 93 ug/dL (37-170) 10/17/18 11:24 TIBC 425 ug/dL (265-497) 10/17/18 11:24 % Saturation 22 % (15-50) 10/17/18 11:24 Transferrin 352 mg/dL (206-381) 10/17/18 11:24 Ferritin 253.0 ng/mL (11.1-264) 01/29/19 11:23 Total Bilirubin 1.0 mg/dL (0.2-1.3) 10/17/18 11:24 AST 23 IU/L (14-36) 10/17/18 11:24 ALT 12 IU/L (9-52) 10/17/18 11:24 Alkaline Phosphatase 45 U/L (38-126) 10/17/18 11:24 Total Protein 6.4 g/dL (6.3-8.2) 10/17/18 11:24 Albumin 4.0 g/dL (3.5-5.0) 10/17/18 11:24 Globulin 2.4 g/dL (1.7-4.1) 10/17/18 11:24 Albumin/Globulin Ratio 1.7 (1.0-2.8) 10/17/18 11:24 - Imaging Additional studies: Procedures Injection or infusion of other therapeutic or prophylactic substance (09/16/13) Insertion of other (naso-)gastric tube (09/16/13) Other endoscopy of small intestine (07/27/13) Assessment and Plan (1) Iron deficiency anemia due to dietary causes Current visit: No Status: Acute The patient is a 52-year-old female who is seen in this clinic for chronic iron deficiency anemia due to malabsorption. She tolerated her IV iron well. Her hemoglobin hematocrit have normalized. Her ferritin is normal. She'll return to clinic in about 4 months for follow-up.
--- NOTE | 2019-09-06 11:13 | ONC.SCHED ---
Patient said that she wasn't ready to come for this apt and would call us back when she is ready to schedule a f/u apt. 09/06/19 Elisa
== END ==
PROVIDERS: Nurse Practitioner Gerontology; Family Provider Nurse Practitioner Family; PCP Nurse Practitioner Family
DX: D50.8 Other iron deficiency anemias (principal); K90.9 Intestinal malabsorption, unspecified
CPT/HCPCS: 36415; 80053; 82728; 83540; 83550; 85025; 96365; 99214; J1756

== ENCOUNTER → 2021-07-16 19:22 | Outpatient (ROUT) | payer OTHER, MEDICAID, SELFPAY ==
[2021-07-16 20:47] LABS: COVID-19 CEPHEID PCR (VTM/NP) Negative (Negative)
== END ==
PROVIDERS: Family Provider Nurse Practitioner Family; PCP Nurse Practitioner Family; Visit Provider Family Medicine
DX: Z20.822 Contact with and (suspected) exposure to COVID-19 (principal)
CPT/HCPCS: U0003; U0005

== ENCOUNTER → 2024-02-07 12:38 | Outpatient (CLI) | payer OTHER, SELFPAY ==
--- NOTE | 2024-02-07 12:39 | DI.MG.S_ITS ---
BILATERAL DIGITAL SCREENING MAMMOGRAM 3D/2D WITH CAD: 02/07/2024 CLINICAL: Baseline exam. Routine screening. No prior exams were available for comparison. The breasts are heterogeneously dense, which may obscure small masses (category c / 51-75% glandular tissue). Current study was also evaluated with a Computer Aided Detection (CAD) system. No significant masses, calcifications, or other findings are seen in either breast. IMPRESSION: NEGATIVE There is no mammographic evidence of malignancy. A 1 year screening mammogram is recommended. Based on the Tyrer Cuzick model (a risk assessment model) the patient's lifetime risk is 12.2% and her 10 year risk is 4.7%. According to the ACR, ACS, and NCCN guidelines, an annual breast MRI exam along with mammogram is recommended if the patient's lifetime risk is 20% or greater. This exam was interpreted at Station ID: [id number]. NOTE: For mammograms, a report in lay terms will be sent to the patient. Approximately 15% of breast malignancies will not be visualized mammographically. In the management of a palpable breast mass, a negative mammogram must not discourage biopsy of a clinically suspicious lesion. Electronically Signed By: Austin [email or web address]:02/07/2024 15:41:11 letter sent: Normal Exam ACR BI-RADS Category 1: Negative
== END ==
PROVIDERS: Family Provider Nurse Practitioner Family; PCP Family Medicine; Referring Provider Family Medicine; Visit Provider Family Medicine
DX: Z12.31 Encounter for screening mammogram for malignant neoplasm of breast (principal); R92.333 Mammographic heterogeneous density, bilateral breasts
CPT/HCPCS: 77063; 77067